=== PATIENT | female | born 1940 | race Caucasian/White ===

== ENCOUNTER 2021-09-23 08:36 | Emergency (ER) | payer MEDICARE ==
[~2021-09-23] VITALS: Ht 160 cm; Wt 56.4 kg
[2021-09-23 10:54] VITALS: BP 156/82
== END 2021-09-23 11:20 | disposition home or self-care (01) ==
LOC: EMS 08:42
DX: S62.001A Unspecified fracture of navicular [scaphoid] bone of right wrist, initial encounter for closed fracture (principal); I10 Essential (primary) hypertension; E11.9 Type 2 diabetes mellitus without complications; E78.00 Pure hypercholesterolemia, unspecified; Z87.891 Personal history of nicotine dependence; W18.39XA Other fall on same level, initial encounter; Y93.89 Activity, other specified; Y92.89 Other specified places as the place of occurrence of the external cause; Y99.8 Other external cause status
CPT/HCPCS: 82962; 99284